=== PATIENT | female | born 1990 ===

== ENCOUNTER 2021-01-28 16:39 | Emergency (ER) | payer OTHER ==
[~2021-01-28] VITALS: Ht 175.3 cm; Wt 68.0 kg
[2021-01-28 19:38] LABS: Source, Urine Clean Catch
[2021-01-28 19:42] LABS: Appearance, Urine Hazy (Clear); Bilirubin, Urine Neg (Neg); Blood, Urine 4+ (Neg); Color, Urine Yellow (P-Yellow); Glucose Qualitative, Urine Neg (Neg); Ketones, Urine 3+ (Neg); Leukocyte Esterase, Urine 2+ (Neg); Nitrite, Urine Neg (Neg); Protein, Urine 3+ (Neg); Urobilinogen, Urine NORM (Normal); pH, Urine 6.5 (5.0-8.0)
[2021-01-28 20:05] LABS: Amorphous Mod (0-Heavy); Bacteria Mod /hpf; Mucus Light (0-Heavy); Red Blood Cells, Urine 50-100 /hpf (0-2); Squamous Epithelial Cells Few /hpf (Few); White Blood Cells, Urine TNTC /hpf (0-5)
[2021-01-28] MEDS ORDERED: CEPH500 PO (20:17)
[2021-01-28] MEDS ORDERED: Valtrex1000 MG PO (20:17)
[2021-01-28] MEDS ORDERED: Norco 5-325 Ta1 EACH PO (20:17)
== END 2021-01-28 20:38 | disposition home or self-care (01) ==
LOC: ER 16:39
PROVIDERS: Emergency Medicine Emergency Medical Services
DX: N76.0 Acute vaginitis (principal); N39.0 Urinary tract infection, site not specified
CPT/HCPCS: 81001; 81025; 87086; 99283; A9270